=== PATIENT | male | born 1970 | race Hispanic/Latino ===

== ENCOUNTER 2020-12-24 15:45 | Emergency (ER) | payer BC ==
[~2020-12-24] VITALS: Ht 177.8 cm; Wt 88.5 kg
[2020-12-24] MEDS ORDERED: CASIRIVIMAB/IMDEVIMAB 600 MG INJ IV ONE (16:00)
[2020-12-24] MEDS ORDERED: IBUPROFEN 400 MG TAB PO ONE (16:00)
[2020-12-24] MEDS ORDERED: CASIRIVIMAB/IMDEVIMAB 600 MG in SODIUM CHLORIDE 0.9% 100 ML IV ONE (16:30)
== END 2020-12-24 17:42 | disposition home or self-care (01) ==
LOC: ER 16:02
DX: U07.1 COVID-19 (principal); R06.02 Shortness of breath
CPT/HCPCS: 99283; J7050